=== PATIENT | female | born 1995 | race Two or more races ===

== ENCOUNTER 2019-01-07 18:09 | Emergency (ER) | payer MEDICAID ==
--- NOTE | 2019-01-07 19:26 | NUR ---
CALLED PT TO BE TRIAGED 3X, NO ANSWER. WILL FOLLOW UP
--- NOTE | 2019-01-07 19:35 | NUR ---
CALLED PT TO BE TRAIGED 3X, NO ANSWER
== END 2019-01-07 19:53 | disposition left against medical advice (07) ==
LOC: ER 18:14
DX: Z53.21 Procedure and treatment not carried out due to patient leaving prior to being seen by health care provider (principal)